=== PATIENT | female | born 1950 | race Caucasian/White ===

== ENCOUNTER 2016-03-26 14:03 | Emergency (ER) | payer OTHER ==
[2016-03-26 14:51] VITALS: BMI 34.0
[2016-03-26] MEDS ORDERED: ACETAMINOPHEN 650 MG/20.3 ML ORAL SOLUTION (CUPS) PO ONE (14:51)
[2016-03-26] MEDS ORDERED: SODIUM CHLORIDE 1,000 ML IV STA (16:39)
--- NOTE | 2016-03-26 16:47 | PDOC ---
History of Present Illness - General History Source: Patient - History of Present Illness Timing/Duration: reports: week Associated Symptoms: reports: cough, fever/chills, muscle aches, nasal congestion, nasal drainage, shortness of breath. denies: chest pain/soreness, dizziness, earache, headache, sore throat, wheezing <April EdenTheresa - Last Filed: 03/27/16 09:31> <Karine Choudhury - Last Filed: 03/27/16 19:21> - General Chief Complaint: Respiratory Stated Complaint: CONGESTED, VOMITING, HEADACHE Time Seen by Provider: 03/26/16 16:06 Past History - Past Medical History Asthma: Yes Diabetes: Yes Dialysis: No HTN: Yes Hypercholesterolemia: Yes - Immunization History Immunization Up to Date: Yes - Psycho/Social/Smoking Cessation Hx Anxiety: No Suicidal Ideation: No Smoking History: Never smoked Have you smoked in the past 12 months: No Information on smoking cessation initiated: No Hx Alcohol Use: No Drug/Substance Use Hx: No Substance Use Type: None <April EdenTheresa - Last Filed: 03/27/16 09:31> <Karine Choudhury - Last Filed: 03/27/16 19:21> - Past Medical History Allergies/Adverse Reactions: Allergies Allergy/AdvReac Type Severity Reaction Status Date / Time No Known Allergies Allergy Verified 03/26/16 14:47 Home Medications: Ambulatory Orders Aspirin [ASA -] 81 mg PO DAILY 11/20/15 Atorvastatin Ca [Lipitor] 100 mg PO HS 11/20/15 Benzonatate 200 mg PO TID 11/20/15 Calcium Carb/Vitamin D3/Vit K1 [Calcium + D Soft Chewable Tab] 1 each PO BID Gabapentin 300 mg PO TID 11/20/15 Ibuprofen 600 mg PO TID PRN 11/20/15 Lisinopril [Zestril] 2.5 mg PO DAILY 11/20/15 Metformin HCl [Metformin HCl ER] 500 mg PO HS 11/20/15 Sennosides [Senna] 8.6 mg PO DAILY PRN 11/20/15 Albuterol Sulfate Inhaler - [Ventolin HFA Inhaler -] 2 inh PO Q4H #1 inh Promethazine HCl/Codeine [Prometh-Codein 6.25-10 mg/5 ml] 5 ml PO BID #60 syrup MDD 10 11/23/15 Azithromycin [Zithromax -] 250 mg PO UTDICT #6 tab 03/26/16 Azithromycin [Zithromax -] 250 mg PO UTDICT #6 tab 03/26/16 Review of Systems - Review of Systems Constitutional: Yes: Chills, Fever, Malaise HEENTM: Yes: Nose Congestion Respiratory: Yes: Cough, Shortness of Breath. No: Wheezing Cardiac (ROS): No: Chest Pain ABD/GI: No: Diarrhea, Nausea Neurological: No: Headache, Dizziness <[place] - Last Filed: 03/27/16 09:31> *Physical Exam - Vital Signs Last Vital Signs Temp Pulse Resp BP Pulse Ox 103.0 F H 109 H 18 136/71 94 L 03/26/16 14:48 03/26/16 14:48 03/26/16 14:48 03/26/16 14:48 03/26/16 14:48 - Physical Exam General Appearance: Yes: Appropriately Dressed. No: Apparent Distress HEENT: positive: Normal ENT Inspection, Normal Voice. negative: Scleral Icterus (R), Scleral Icterus (L), Muffled/Hoarse voice Neck: positive: Supple. negative: Lymphadenopathy (R), Lymphadenopathy (L) Respiratory/Chest: positive: Decreased Breath Sounds (on the R). negative: Respiratory Distress Cardiovascular: positive: S1, S2, Tachycardia Gastrointestinal/Abdominal: positive: Soft. negative: Tender Integumentary: positive: Dry, Warm Neurologic: positive: Fully Oriented, Alert, Normal Mood/Affect <[place] - Last Filed: 03/27/16 09:31> - Vital Signs Last Vital Signs Temp Pulse Resp BP Pulse Ox 102.9 F H 107 H 21 157/78 96 03/26/16 21:11 03/26/16 21:11 03/26/16 21:11 03/26/16 21:11 03/26/16 21:11 <Karine Choudhury - Last Filed: 03/27/16 19:21> ED Treatment Course - LABORATORY CBC & Chemistry Diagram: 03/26/16 18:10 03/26/16 18:10 - RADIOLOGY Radiology Studies Ordered: Category Date Time Status CHEST PA & LAT [RAD] Stat Radiology 03/26/16 16:38 Ordered - Medications Given in the ED: ED Medications Discontinued Medications Generic Name Dose Route Start Last Admin Trade Name Freger PRN Reason Stop Dose Admin Acetaminophen 975 mg 03/26/16 14:51 03/26/16 14:51 Tylenol Oral Solution - PO 03/26/16 14:52 975 mg NOW ONE Administration <[place] - Last Filed: 03/27/16 09:31> - LABORATORY CBC & Chemistry Diagram: 03/26/16 18:10 03/26/16 18:10 - ADDITIONAL ORDERS Additional order review: 03/26/16 18:50 Blood Culture - Preliminary Blood - Peripheral Venous NO GROWTH OBTAINED AFTER 24 HOURS, INCUBATION TO CONTINUE FOR 4 DAYS. 03/26/16 18:00 Blood Culture - Preliminary Blood - Peripheral Venous NO GROWTH OBTAINED AFTER 24 HOURS, INCUBATION TO CONTINUE FOR 4 DAYS. 03/26/16 18:10 Influenza Types A,B Antigen (KATIE) - Final Nasopharyngeal Swab - Final 03/26/16 18:10 RBC 4.56 MCV 85.1 MCHC 32.9 RDW 14.8 MPV 10.0 Neutrophils % 87.3 H D Lymphocytes % 9.2 D Monocytes % 3.0 L Eosinophils % 0.0 D Basophils % 0.5 - Medications Given in the ED: ED Medications Discontinued Medications Generic Name Dose Route Start Last Admin Trade Name Freger PRN Reason Stop Dose Admin Acetaminophen 975 mg 03/26/16 14:51 03/26/16 14:51 Tylenol Oral Solution - PO 03/26/16 14:52 975 mg NOW ONE Administration Sodium Chloride 1,000 mls @ 1,000 mls/hr 03/26/16 16:39 03/26/16 18:25 Normal Saline - IV 03/26/16 17:38 1,000 mls/hr ASDIR STA Administration Ceftriaxone Sodium 1 gm/ 50 mls @ 100 mls/hr 03/26/16 17:26 03/26/16 18:36 Dextrose IVPB 03/26/16 17:55 100 mls/hr ONCE ONE Administration Ibuprofen 800 mg 03/26/16 21:10 03/26/16 21:14 Motrin - PO 03/26/16 21:11 800 mg ONCE ONE Administration <Karine Choudhury - Last Filed: 03/27/16 19:21> Medical Decision Making - Medical Decision Making 03/26/16 16:45 65 yo F, h/o DM, asthma, recurrent "bronchitis", p/w malaise with body aches, nasal congestion, productive cough, shortness of breath and fever 1 week. Denies wheezing. States when she has these symptoms, she usually gets a z-Pack for her bronchitis, but for unclear reasons was unable to see her PMD so presented to the ER. No history of pneumonia as per patient and nonsmoker. See exam Viral syndrome Tachy, hypoxic and febrile in ED w/ ?decreased BS on the R R/o PNA, possible influenza -NC -tylenol -CXR -abx -labs including inflenza -admit 03/27/16 09:31 <[place] - Last Filed: 03/27/16 09:31> *DC/Admit/Observation/Transfer <[place] - Last Filed: 03/27/16 09:31> - Attestations Physician Attestion: I reviewed the case with the mid-level practitioner and agree with the mid- level practitioner's assessment, diagnosis and disposition. <Karine Choudhury - Last Filed: 03/27/16 19:21> Diagnosis at time of Disposition: Influenza A - Discharge Dispostion Disposition: HOME Condition at time of disposition: Improved - Prescriptions Prescriptions: Azithromycin [Zithromax -] 250 mg PO UTDICT #6 tab Azithromycin [Zithromax -] 250 mg PO UTDICT #6 tab - Referrals Referrals: Reid Craven MD [Staff Physician] - - Patient Instructions Printed Discharge Instructions: Influenza Additional Instructions: Follow up with your physician Take tylenol/Motrin as needed for pain/fever Increase fluid intake Return to the Er for severe/persistent/worsening symptoms
[2016-03-26] MEDS ORDERED: AZITHROMYCIN IVPB 500 MG in DEXTROSE 5%-WATER - 250 ML IVPB ONE (17:25)
[2016-03-26] MEDS ORDERED: CEFTRIAXONE 1 GM in DEXTROSE 5%-WATER - 50 ML IVPB ONE (17:26)
[2016-03-26 18:22] LABS: BASOPHIL 0.5 % (0-2.0); MCHC 32.9 g/dl (32.0-36.0); MEAN CELL VOLUME 85.1 fl (80-96); NEUTROPHILS 87.3 % (42.8-82.8); PLATELET COUNT 236 K/MM3 (134-434); RDW 14.8 % (11.6-15.6)
[2016-03-26] MEDS ORDERED: ACETAMINOPHEN 325 MG TABLET (FP) ONE (18:24)
[2016-03-26] MEDS ORDERED: CEFTRIAXONE 50 ML ONE (18:31)
[2016-03-26 18:48] LABS: ALBUMIN 3.3 g/dl (3.4-5.0); ANION GAP 14 (8-16); CALCIUM 8.1 mg/dL (8.5-10.1); CO2 25 mmol/L (21-32); CREATININE 0.9 mg/dL (0.55-1.02); GLUCOSE,RANDOM 130 mg/dL (74-106); SGPT/ALT 33 U/L (12-78)
[2016-03-26 18:50] LABS: ALK PHOS 120 U/L (45-117); BILIRUBIN,TOTAL 0.5 mg/dL (0.2-1.0); TOT PROT 7.3 g/dl (6.4-8.2)
[2016-03-26 18:56] LABS: SGOT/AST 33 U/L (15-37)
--- NOTE | 2016-03-26 20:29 | PDOC ---
*Physical Exam - Vital Signs Last Vital Signs Temp Pulse Resp BP Pulse Ox 103.0 F H 109 H 18 136/71 94 L 03/26/16 14:48 03/26/16 14:48 03/26/16 14:48 03/26/16 14:48 03/26/16 14:48 ED Treatment Course - LABORATORY CBC & Chemistry Diagram: 03/26/16 18:10 03/26/16 18:10 - ADDITIONAL ORDERS Additional order review: Laboratory Results 03/26/16 03/26/16 18:55 18:10 Sodium 141 Potassium 4.2 Chloride 102 Carbon Dioxide 25 Anion Gap 14 BUN 13 Creatinine 0.9 Creat Clearance w eGFR > 60 Random Glucose 130 H D Lactic Acid 1.717 Calcium 8.1 L Total Bilirubin 0.5 D AST 33 ALT 33 Alkaline Phosphatase 120 H Total Protein 7.3 Albumin 3.3 L 03/26/16 18:10 Influenza Types A,B Antigen (KATIE) - Final Nasopharyngeal Swab - Final 03/26/16 18:10 RBC 4.56 MCV 85.1 MCHC 32.9 RDW 14.8 MPV 10.0 Neutrophils % 87.3 H D Lymphocytes % 9.2 D Monocytes % 3.0 L Eosinophils % 0.0 D Basophils % 0.5 - RADIOLOGY Radiograph Interpretation: 03/26/16 21:06 CXR 2v no infiltrates NAD - Medications Given in the ED: ED Medications Discontinued Medications Generic Name Dose Route Start Last Admin Trade Name Freq PRN Reason Stop Dose Admin Acetaminophen 975 mg 03/26/16 14:51 03/26/16 14:51 Tylenol Oral Solution - PO 03/26/16 14:52 975 mg NOW ONE Administration Sodium Chloride 1,000 mls @ 1,000 mls/hr 03/26/16 16:39 03/26/16 18:25 Normal Saline - IV 03/26/16 17:38 1,000 mls/hr ASDIR STA Administration Ceftriaxone Sodium 1 gm/ 50 mls @ 100 mls/hr 03/26/16 17:26 03/26/16 18:36 Dextrose IVPB 03/26/16 17:55 100 mls/hr ONCE ONE Administration *DC/Admit/Observation/Transfer Diagnosis at time of Disposition: Influenza A - Discharge Dispostion Disposition: HOME Condition at time of disposition: Improved Admit: No - Prescriptions Prescriptions: Azithromycin [Zithromax -] 250 mg PO UTDICT #6 tab Azithromycin [Zithromax -] 250 mg PO UTDICT #6 tab - Referrals Referrals: Reid Craven MD [Staff Physician] - - Patient Instructions Printed Discharge Instructions: Influenza Additional Instructions: Follow up with your physician Take tylenol/Motrin as needed for pain/fever Increase fluid intake Return to the Er for severe/persistent/worsening symptoms
[2016-03-26] MEDS ORDERED: IBUPROFEN 400 MG TABLET (FP) PO ONE ×2 (21:10→21:12)
[2016-03-26 21:12] VITALS: BP 157/78; PULSE 107; TEMP 102.9
--- NOTE | 2016-03-28 23:45 | EKG ---
Test Reason : Blood Pressure : / mmHG Vent. Rate : 089 BPM Atrial Rate : 089 BPM P-R Int : 138 ms QRS Dur : 080 ms QT Int : 380 ms P-R-T Axes : 039 060 064 degrees QTc Int : 462 ms NORMAL SINUS RHYTHM NORMAL ECG WHEN COMPARED WITH ECG OF 25-OCT-2015 21:48, NO SIGNIFICANT CHANGE WAS FOUND Confirmed by ABHILASH ELIZABETH MD ([id number]) on 03/28/2016 11:45:23 PM Referred By: Confirmed By:ABHILASH ELIZABETH MD
== END 2016-03-26 22:32 | disposition home or self-care (01) ==
LOC: JER 14:03
PROC: 3E0337Z Introduction of Electrolytic and Water Balance Substance into Peripheral Vein, Percutaneous Approach (ICD-10-PCS; principal; 2016-03-26)
PROC: 3E03329 Introduction of Other Anti-infective into Peripheral Vein, Percutaneous Approach (ICD-10-PCS; 2016-03-26)
DX: J09.X2 Influenza due to identified novel influenza A virus with other respiratory manifestations (principal)
CPT/HCPCS: 36415; 71020-TC; 80053; 83605; 85025; 87040; 87804; 93005; 93010; 96361; 96365; 99281-25

== ENCOUNTER 2018-03-27 16:14 | Emergency (ER) | payer OTHER ==
[2018-03-27 16:23] VITALS: BP 122/58; PULSE 97; TEMP 98.9; BMI 25.8
--- NOTE | 2018-03-27 16:24 | PDOC ---
Rapid Medical Evaluation Time Seen by Provider: 03/27/18 16:20 Medical Evaluation: Allergies Allergy/AdvReac Type Severity Reaction Status Date / Time No Known Allergies Allergy Verified 03/26/16 14:47 03/27/18 16:20 Pt presents to the ED with two weeks of cough and cold like symptoms. Was on amoxicillin with little relief of symptoms Exam: cough with deep breaths. Lungs CTAB Orders: Nothing Pt to proceed to ED for further evaluation Discharge Disposition - Diagnosis Cough - Referrals Referrals: Mingo Aj [Primary Care Provider] - - Patient Instructions - Post Discharge Activity
[2018-03-27] MEDS ORDERED: DEXAMETHASONE LIQUID 0.5 MG/5 ML 240 ML BULK BOTTLE PO ONE (16:52)
[2018-03-27] MEDS ORDERED: DEXAMETHASONE SOD PHOSPHATE 10 MG/1 ML VIAL ONE (16:57)
[2018-03-27] MEDS ORDERED: ALBUTEROL SO4 2.5/IPRATROPIUM 0.5 INH SOL 3 ML VIAL.NEB. NEB ONE (16:57)
--- NOTE | 2018-03-27 17:03 | PDOC ---
History of Present Illness - General Chief Complaint: Cold Symptoms Stated Complaint: Cold Symptoms Time Seen by Provider: 03/27/18 16:20 - History of Present Illness Initial Comments: 03/27/18 16:58 67-year-old female with history of diabetes hypertension as well as dyslipidemia presents for evaluation of cough with intermittent fevers 2 weeks Past History - Past Medical History Allergies/Adverse Reactions: Allergies Allergy/AdvReac Type Severity Reaction Status Date / Time No Known Allergies Allergy Verified 03/26/16 14:47 Home Medications: Ambulatory Orders Aspirin [ASA -] 81 mg PO DAILY 11/20/15 Atorvastatin Ca [Lipitor] 100 mg PO HS 11/20/15 Calcium Carb/Vitamin D3/Vit K1 [Calcium + D Soft Chewable Tab] 1 each PO BID Gabapentin 300 mg PO TID 11/20/15 Lisinopril [Zestril] 2.5 mg PO DAILY 11/20/15 Metformin HCl [Metformin HCl ER] 500 mg PO HS 11/20/15 Albuterol Sulfate Inhaler - [Ventolin HFA Inhaler -] 2 inh PO Q4H #1 inh Azithromycin [Zithromax -] 250 mg PO UTDICT #6 tab 03/27/18 Asthma: Yes Diabetes: Yes Dialysis: No HTN: Yes Hypercholesterolemia: Yes - Immunization History Immunization Up to Date: Yes - Suicide/Smoking/Psychosocial Hx Smoking History: Never smoked Have you smoked in the past 12 months: No Hx Alcohol Use: No Drug/Substance Use Hx: No Substance Use Type: None Review of Systems - Review of Systems Constitutional: Yes: Fever Respiratory: Yes: Cough *Physical Exam - Vital Signs Last Vital Signs Temp Pulse Resp BP Pulse Ox 98.9 F 97 H 20 122/58 L 97 03/27/18 16:19 03/27/18 16:19 03/27/18 16:19 03/27/18 16:19 03/27/18 16:19 - Physical Exam Comments: 03/27/18 17:00 HEAD: NC/AT EYES: Conjuntiva clear Ears: Canals and TM's normal NOSE: No d/c THROAT: Moist mucous membrances, oral pharanx clear, uvula midline NECK: Supple without adenopathy CARDIAC: S1 S2 LUNGS: Mild wheezing at the right base ABDOMEN: Soft NT ND MS: Full ROM in all joints without edema NEUROLOGIC: No gross sensory or motor deficits, NVID SKIN: Normal color and temperature no lesions or rashes Moderate Sedation - Procedure Monitoring Vital Signs: Procedure Monitoring Vital Signs Temperature 98.9 F 03/27/18 16:19 Pulse Rate 97 H 03/27/18 16:19 Respiratory Rate 20 03/27/18 16:19 Blood Pressure 122/58 L 03/27/18 16:19 O2 Sat by Pulse Oximetry (%) 97 03/27/18 16:19 Medical Decision Making - Medical Decision Making 03/27/18 18:00 clear after 3 duo nebs and decadron *DC/Admit/Observation/Transfer Diagnosis at time of Disposition: Cough, Bronchitis - Discharge Dispostion Disposition: HOME Condition at time of disposition: Stable Decision to Admit order: No - Referrals Referrals: Mingo Aj [Primary Care Provider] - Mingo Virgen MD, MD [Staff Physician] - - Patient Instructions Printed Discharge Instructions: DI for Acute Bronchitis Additional Instructions: Please continue usual pump as directed and take the antibiotics as directed. Tylenol and Motrin as needed for fever please take that as directed return to the emergency room should symptoms worsen or go unresolved and follow-up with pulmonology in 2-3 days for further evaluation and treatment options. - Post Discharge Activity
[2018-03-27] MEDS: ALBUTEROL SO4 2.5/IPRATROPIUM 0.5 INH SOL 3 ML VIAL.NEB. NEB SCH ×4 (17:04→18:04)
== END 2018-03-27 18:08 | disposition home or self-care (01) ==
LOC: JERFT 16:14
DX: J20.9 Acute bronchitis, unspecified (principal); I10 Essential (primary) hypertension; E78.00 Pure hypercholesterolemia, unspecified; E11.9 Type 2 diabetes mellitus without complications; Z79.84 Long term (current) use of oral hypoglycemic drugs
CPT/HCPCS: 71046-TC-FY; 99281-25

== ENCOUNTER 2018-05-12 00:45 | Emergency (ER) | payer OTHER ==
[2018-05-12 01:46] VITALS: BMI 33.4
--- NOTE | 2018-05-12 01:58 | PDOC ---
History of Present Illness - General Chief Complaint: Nausea/Vomiting Stated Complaint: FEVER/VOMITING Time Seen by Provider: 05/12/18 01:58 History Source: Patient Exam Limitations: No Limitations - History of Present Illness Initial Comments: 05/12/18 02:23 67 year old female with PMH HTN, HLD, DM, cholecystectomy presented to ED for nausea/vomiting starting 1900 today. Pt stated she ate pizza prior to her symptoms developing. Pt stated her family ate the same pizza and did not have any reaction. She admitted to diffuse abdominal pain. She denied fever, chills, diarrhea, hematemesis, blood in stool, chest pain, shortness of breath. Allergies: NKDA Past History - Past Medical History Allergies/Adverse Reactions: Allergies Allergy/AdvReac Type Severity Reaction Status Date / Time No Known Allergies Allergy Verified 05/12/18 01:44 Home Medications: Ambulatory Orders Aspirin [ASA -] 81 mg PO DAILY 11/20/15 Atorvastatin Ca [Lipitor] 100 mg PO HS 11/20/15 Calcium Carb/Vitamin D3/Vit K1 [Calcium + D Soft Chewable Tab] 1 each PO BID Gabapentin 300 mg PO TID 11/20/15 Lisinopril [Zestril] 2.5 mg PO DAILY 11/20/15 Metformin HCl [Metformin HCl ER] 500 mg PO HS 11/20/15 Albuterol Sulfate Inhaler - [Ventolin HFA Inhaler -] 2 inh PO Q4H #1 inh Albuterol Sulfate Inhaler - [Ventolin HFA Inhaler -] 1 - 2 inh PO Q4H #1 inhaler 03/27/18 Azithromycin [Zithromax -] 250 mg PO UTDICT #6 tab 03/27/18 Ondansetron [Zofran Odt -] 4 mg SL TID #3 od.tablet 05/12/18 Ondansetron [Zofran Odt -] 4 mg SL TID #9 od.tablet 05/12/18 Asthma: Yes Diabetes: Yes Dialysis: No HTN: Yes Hypercholesterolemia: Yes - Immunization History Immunization Up to Date: Yes - Suicide/Smoking/Psychosocial Hx Smoking History: Never smoked Have you smoked in the past 12 months: No Information on smoking cessation initiated: No Hx Alcohol Use: No Drug/Substance Use Hx: No Substance Use Type: None Review of Systems - Review of Systems Able to Perform ROS?: Yes Comments:: 05/12/18 02:24 General: denied fever, chills, generalized weakness. HEENT: denied sore throat, rhinorrhea, ear pain. Heart: denied chest pain, palpitations, syncope, diaphoresis. Respiratory: denied shortness of breath, cough, sputum production, hemoptysis. Abdomen: abdominal pain, nausea, vomiting. denied diarrhea, constipation, blood in stool. : denied dysuria, increased urinary frequency, hematuria, urinary incontinence , flank pain. Back: denied back pain. Musculoskeletal: denied joint pain, muscle pain, joint swelling. Neurological: denied headache, dizziness, numbness, tingling, weakness. Skin: denied rash, laceration, abrasion. *Physical Exam - Vital Signs Last Vital Signs Temp Pulse Resp BP Pulse Ox 98.2 F 83 16 112/60 98 05/12/18 01:44 05/12/18 01:44 05/12/18 01:44 05/12/18 01:44 05/12/18 01:44 - Physical Exam Comments: 05/12/18 02:25 Constitutional: Well-nourished, Well-developed, appearing stated age. HEENT: head is normocephalic, atraumatic. EOMI. PERRLA. Neck: supple. Full ROM. Heart: regular rhythm. no murmurs, rubs or gallops. Lungs: clear to auscultation bilaterally. no crackles, rhonchi or wheezing. no stridor. Abdomen: soft, tenderness to palpation of epigastrium and periumbilical area. murphys negative. mcburneys point nontender. normal bowel sounds. no rebound, guarding, masses. Extremities: peripheral pulses intact. no lower extremity edema. Neurological: CN 2-12 grossly intact. moves all four extremities. Psych: awake, alert, oriented x3. follows commands. answers questions appropriately. Moderate Sedation - Procedure Monitoring Vital Signs: Procedure Monitoring Vital Signs Temperature 98.2 F 05/12/18 01:44 Pulse Rate 83 05/12/18 01:44 Respiratory Rate 16 05/12/18 01:44 Blood Pressure 112/60 05/12/18 01:44 O2 Sat by Pulse Oximetry (%) 98 05/12/18 01:44 ED Treatment Course - LABORATORY CBC & Chemistry Diagram: 05/12/18 03:03 05/12/18 03:03 Medical Decision Making - Medical Decision Making 05/12/18 02:26 67 year old female with above PMH presented to ED for nausea, vomiting, diffuse abdominal pain since 1900 today. Initial Vital Signs Temp Pulse Resp BP Pulse Ox 98.2 F 83 16 112/60 98 05/12/18 01:44 05/12/18 01:44 05/12/18 01:44 05/12/18 01:44 05/12/18 01:44 Afebrile. No tachycardia. No tachypnea. No hypotension. No hypoxia on room air. Labs ordered: CBC, CMP, lipase, troponin, influenza A/B Imaging ordered: none Medications ordered: normal saline bolus 1000 cc, zofran, pepcid, maalox EKG performed at 0254: rate 76, regular rhythm, normal axis, normal intervals, nonspecific ST changes. 05/12/18 03:41 1st normal saline bolus finished. Medications ordered: normal saline 1000 cc bolus 05/12/18 03:50 CBC WBC 8.8 K/mm3 (4.0-10.0) 05/12/18 03:03 RBC 3.98 M/mm3 (3.60-5.2) 05/12/18 03:03 Hgb 12.1 GM/dL (10.7-15.3) 05/12/18 03:03 Hct 35.6 % (32.4-45.2) 05/12/18 03:03 MCV 89.5 fl (80-96) 05/12/18 03:03 MCH 30.3 pg (25.7-33.7) 05/12/18 03:03 MCHC 33.9 g/dl (32.0-36.0) 05/12/18 03:03 RDW 14.4 % (11.6-15.6) 05/12/18 03:03 Plt Count 266 K/MM3 (134-434) 05/12/18 03:03 MPV 10.7 fl (7.5-11.1) 05/12/18 03:03 Absolute Neuts (auto) 7.6 K/mm3 (1.5-8.0) 05/12/18 03:03 Neutrophils % 86.2 % (42.8-82.8) H 05/12/18 03:03 Lymphocytes % 8.8 % (8-40) 05/12/18 03:03 Monocytes % 3.4 % (3.8-10.2) L 05/12/18 03:03 Eosinophils % 1.2 % (0-4.5) D 05/12/18 03:03 Basophils % 0.4 % (0-2.0) 05/12/18 03:03 Nucleated RBC % 0 % (0-0) 05/12/18 03:03 No leukocytosis. No anemia. 05/12/18 03:59 Influenza testing negative. 05/12/18 04:22 Pt reassessed, reported nausea improved, but pain still present. Examination: tenderness to to epigastrium. Imaging ordered: CT abdomen/pelvis 05/12/18 05:23 CMP Sodium 142 mmol/L (136-145) 05/12/18 03:03 Potassium 3.7 mmol/L (3.5-5.1) 05/12/18 03:03 Chloride 108 mmol/L (98-107) H 05/12/18 03:03 Carbon Dioxide 26 mmol/L (21-32) 05/12/18 03:03 Anion Gap 9 MMOL/L (8-16) 05/12/18 03:03 BUN 19 mg/dL (7-18) H 05/12/18 03:03 Creatinine 0.7 mg/dL (0.55-1.3) 05/12/18 03:03 Creat Clearance w eGFR > 60 (>60) 05/12/18 03:03 Random Glucose 98 mg/dL (74-106) 05/12/18 03:03 Calcium 8.1 mg/dL (8.5-10.1) L 05/12/18 03:03 Total Bilirubin 0.6 mg/dL (0.2-1) 05/12/18 03:03 AST 19 U/L (15-37) 05/12/18 03:03 ALT 16 U/L (13-61) 05/12/18 03:03 Alkaline Phosphatase 86 U/L (45-117) 05/12/18 03:03 Troponin I 0.02 ng/ml (0.00-0.05) 05/12/18 03:03 Total Protein 6.4 g/dl (6.4-8.2) 05/12/18 03:03 Albumin 3.3 g/dl (3.4-5.0) L 05/12/18 03:03 Lipase 73 U/L (73-393) 05/12/18 03:03 No electrolyte abnormalities. No NIKOLAY. Normal troponin. Normal lipase. 05/12/18 05:26 CT abdomen/pelvis report: small stone left kidney. no obstructive uropathy. no bladder calculi. unremarkable stomach, spleen, liver, pancreas. cholecystectomy. no bowel obstruction, colitis, diverticulitis, free fluid or free air. normal appendix. chronically superiorly dislocated femoral heads. Pt reassessed, resting comfortably. Reported pain improved and she would like to go home. Pt discharged. Discharge medications: zofran *DC/Admit/Observation/Transfer Diagnosis at time of Disposition: Abdominal pain, Nausea & vomiting - Discharge Dispostion Disposition: HOME Condition at time of disposition: Improved Decision to Admit order: No - Prescriptions Prescriptions: Ondansetron [Zofran Odt -] 4 mg SL TID #9 od.tablet Ondansetron [Zofran Odt -] 4 mg SL TID #3 od.tablet - Referrals Referrals: Mingo Aj [Primary Care Provider] - - Patient Instructions Printed Discharge Instructions: DI for Abdominal Pain-Adult, DI for Nausea -- Adult, DI for Vomiting -- Adult Additional Instructions: You were seen today for abdominal pain. Your lab work was normal. Your CatScan of your abdomen showed a left sided kidney stone that is small. I have sent a prescription to your pharmacy for Zofran, an anti-nausea medication. Take as indicated on label. Avoid greasy/fatty foods. Follow up with your primary care doctor in 1-2 days. Return to the Emergency Department for chest pain, shortness of breath, increasing pain despite Tylenol use, vomiting despite Zofran use, fever or any other new, worsening or concerning symptoms. Print Language: ERITREAN - Post Discharge Activity Forms/Work/School Notes: Back to Work
[2018-05-12] MEDS ORDERED: FAMOTIDINE 20 MG/50 ML IVPB 20 MG/50 ML MG IVPB ONE ×2 (02:06→02:25)
[2018-05-12] MEDS ORDERED: SODIUM CHLORIDE 1,000 ML IV STA ×2 (02:06→03:41)
[2018-05-12] MEDS ORDERED: ONDANSETRON 4 MG/2 ML VIAL IVPUSH ONE (02:06)
[2018-05-12] MEDS ORDERED: MAG HYDROX/AL HYDROX/SIMETH 30 ML UNIT-DOSE CUP PO ONE (02:06)
[2018-05-12] MEDS ORDERED: ONDANSETRON 4 MG/2 ML VIAL ONE (02:24)
[2018-05-12] MEDS ORDERED: MAG HYDROX/AL HYDROX/SIMETH 30 ML UNIT-DOSE CUP ONE (02:24)
--- NOTE | 2018-05-12 03:05 | PDOC ---
Attending Attestation - Resident Resident Name: Carmen Johnson - ED Attending Attestation I have performed the following: I have examined & evaluated the patient, The case was reviewed & discussed with the resident, I agree w/resident's findings & plan, Exceptions are as noted - HPI HPI: 05/12/18 06:31 67F here with acute onset of abd px, n/v after eating pizza. No trauma, ROS otherwise neg - Physicial Exam PE: 05/12/18 06:32 Agree with exam as documented by resident +TTP over epigastric region, no guarding, no rebound - Medical Decision Making 05/12/18 06:32 Likely AGE 2/2 food, consider acute intra-abd pathology, atypical presentation of acs f/u labs, analgesia, re-eval Px and tenderness persisting after tx f/u CT AP Symptoms resolved, ct neg for acute path safe for dc home
[2018-05-12 03:36] LABS: HEMATOCRIT 35.6 % (32.4-45.2); HEMOGLOBIN 12.1 GM/dL (10.7-15.3); MCH 30.3 pg (25.7-33.7); MCHC 33.9 g/dl (32.0-36.0); MEAN CELL VOLUME 89.5 fl (80-96); RBC 3.98 M/mm3 (3.60-5.2); WHITE BLOOD COUNT 8.8 K/mm3 (4.0-10.0)
[2018-05-12 03:37] LABS: BASO % 0.4 % (0-2.0); EOS % 1.2 % (0-4.5); LYMPH % 8.8 % (8-40); MEAN PLT VOLUME 10.7 fl (7.5-11.1); MONO % 3.4 % (3.8-10.2); NEUT % 86.2 % (42.8-82.8); PLATELET COUNT 266 K/MM3 (134-434); RDW 14.4 % (11.6-15.6)
[2018-05-12 05:00] LABS: ALBUMIN 3.3 g/dl (3.4-5.0); ALK PHOS 86 U/L (45-117); ANION GAP 9 MMOL/L (8-16); BILIRUBIN,TOTAL 0.6 mg/dL (0.2-1); BLOOD UREA NITROGEN 19 mg/dL (7-18); CALCIUM 8.1 mg/dL (8.5-10.1); CHLORIDE 108 mmol/L (98-107); CO2 26 mmol/L (21-32); CREATININE 0.7 mg/dL (0.55-1.3); GLUCOSE,RANDOM 98 mg/dL (74-106); LIPASE 73 U/L (73-393); POTASSIUM 3.7 mmol/L (3.5-5.1); SGOT/AST 19 U/L (15-37); SGPT/ALT 16 U/L (13-61); SODIUM 142 mmol/L (136-145); TOT PROT 6.4 g/dl (6.4-8.2)
[2018-05-12 05:54] VITALS: BP 122/76; PULSE 76; TEMP 98
--- NOTE | 2018-05-12 14:17 | EKG ---
Test Reason : Blood Pressure : / mmHG Vent. Rate : 076 BPM Atrial Rate : 076 BPM P-R Int : 160 ms QRS Dur : 088 ms QT Int : 414 ms P-R-T Axes : 034 038 031 degrees QTc Int : 465 ms NORMAL SINUS RHYTHM NORMAL ECG WHEN COMPARED WITH ECG OF 26-MAR-2016 19:55, NO SIGNIFICANT CHANGE WAS FOUND Confirmed by JONO GASPAR MD ([id number]) on 05/12/2018 2:17:16 PM Referred By: Confirmed By:JONO GASPAR MD
== END 2018-05-12 05:53 | disposition home or self-care (01) ==
LOC: JER 00:45
PROC: 3E0337Z Introduction of Electrolytic and Water Balance Substance into Peripheral Vein, Percutaneous Approach (ICD-10-PCS; principal; 2018-05-12)
PROC: 3E033GC Introduction of Other Therapeutic Substance into Peripheral Vein, Percutaneous Approach (ICD-10-PCS; 2018-05-12)
PROC: 3E033GC Introduction of Other Therapeutic Substance into Peripheral Vein, Percutaneous Approach (ICD-10-PCS; 2018-05-12)
DX: R10.13 Epigastric pain (principal); R11.2 Nausea with vomiting, unspecified; I10 Essential (primary) hypertension; E78.00 Pure hypercholesterolemia, unspecified; E11.9 Type 2 diabetes mellitus without complications; Z79.84 Long term (current) use of oral hypoglycemic drugs; J45.909 Unspecified asthma, uncomplicated; Z79.82 Long term (current) use of aspirin; Z90.49 Acquired absence of other specified parts of digestive tract
CPT/HCPCS: 36415; 74176-TC; 80053; 83690; 84484; 85025; 87804; 93005; 93010; 96361; 96365; 96375; 99282-25; J7030

== ENCOUNTER 2018-06-21 11:11 | Emergency (ER) | payer OTHER ==
[2018-06-21 11:23] VITALS: BP 134/72; PULSE 98; TEMP 99.9; BMI 26.5
[2018-06-21] MEDS ORDERED: ALBUTEROL SO4 2.5/IPRATROPIUM 0.5 INH SOL 3 ML VIAL.NEB. NEB ONE ×2 (12:10→12:16)
[2018-06-21] MEDS ORDERED: IBUPROFEN 600 MG TABLET (FP) PO ONE ×2 (12:10→12:16)
--- NOTE | 2018-06-21 12:11 | PDOC ---
History of Present Illness - General Chief Complaint: Respiratory Stated Complaint: FEVER Time Seen by Provider: 06/21/18 11:47 Past History - Travel Traveled outside of the country in the last 30 days: No Close contact w/someone who was outside of country & ill: No - Past Medical History Allergies/Adverse Reactions: Allergies Allergy/AdvReac Type Severity Reaction Status Date / Time No Known Allergies Allergy Verified 06/21/18 11:23 Home Medications: Ambulatory Orders Aspirin [ASA -] 81 mg PO DAILY 11/20/15 Atorvastatin Ca [Lipitor] 100 mg PO HS 11/20/15 Calcium Carb/Vitamin D3/Vit K1 [Calcium + D Soft Chewable Tab] 1 each PO BID Gabapentin 300 mg PO TID 11/20/15 Lisinopril [Zestril] 2.5 mg PO DAILY 11/20/15 Metformin HCl [Metformin HCl ER] 500 mg PO HS 11/20/15 Ibuprofen 600 mg PO Q6H #30 tablet 06/21/18 Asthma: Yes COPD: No Diabetes: Yes Dialysis: No HTN: Yes Hypercholesterolemia: Yes - Immunization History Td Vaccination: Yes TDAP Vaccination: Yes Immunization Up to Date: Yes - Suicide/Smoking/Psychosocial Hx Smoking History: Never smoked Have you smoked in the past 12 months: No Information on smoking cessation initiated: No Hx Alcohol Use: No Drug/Substance Use Hx: No Substance Use Type: None Review of Systems - Review of Systems Able to Perform ROS?: Yes Comments:: 06/21/18 13:17 CONSTITUTIONAL: Present: fever Absent: chills, diaphoresis, generalized weakness, malaise, loss of appetite HEENT: Present: sore throat, nasal congestion Absent: rhinorrhea, throat swelling, difficulty swallowing, mouth swelling, ear pain, eye pain, visual Changes CARDIOVASCULAR: Absent: chest pain, loss of consciousness, palpitations, irregular heart rate, peripheral edema RESPIRATORY: Present: cough Absent: shortness of breath, dyspnea with exertion, orthopnea, wheezing, stridor, hemoptysis GASTROINTESTINAL: Absent: abdominal pain, abdominal distension, nausea, vomiting, diarrhea, constipation, melena, hematochezia GENITOURINARY: Absent: dysuria, frequency, urgency, hesitancy, hematuria, flank pain, genital pain MUSCULOSKELETAL: Absent: myalgia, arthralgia, joint swelling SKIN: Absent: rash, itching, pallor NEUROLOGIC: Absent: headache, focal weakness or paresthesias, dizziness, unsteady gait, seizure, mental status changes, bladder or bowel incontinence PSYCHIATRIC: Absent: anxiety, depression, suicidal or homicidal ideation, hallucinations. Is the patient limited Maldivian proficient: No *Physical Exam - Vital Signs Last Vital Signs Temp Pulse Resp BP Pulse Ox 99.9 F H 98 H 18 134/72 99 06/21/18 11:20 06/21/18 11:20 06/21/18 11:20 06/21/18 11:20 06/21/18 11:20 - Physical Exam Comments: 06/21/18 13:20 GENERAL: Well developed, well nourished. Awake and alert. No acute distress. HEENT: Normocephalic, atraumatic. PERRLA, EOMI. No conjunctival pallor. Sclera are non- icteric. Moist mucous membranes. Oropharynx is clear. NECK: Supple. Full ROM. No JVD. Carotid pulses 2+ and symmetric, without bruits. No thyromegaly. No lymphadenopathy. CARDIOVASCULAR: Regular rate and rhythm. No murmurs, rubs, or gallops. Distal pulses are 2+ and symmetric. PULMONARY: No evidence of respiratory distress. Lungs clear to auscultation bilaterally. No wheezing, rales or rhonchi. ABDOMINAL: Soft. Non-tender. Non-distended. No rebound or guarding. No organomegaly. Normoactive bowel sounds. MUSCULOSKELETAL Normal range of motion at all joints. No bony deformities or tenderness. No CVA tenderness. EXTREMITIES: No cyanosis. No clubbing. No edema. No calf tenderness. SKIN: Warm and dry. Normal capillary refill. No rashes. No jaundice. NEUROLOGICAL: Alert, awake, appropriate. Cranial nerves 2-12 intact. No deficits to light touch and temperature in face, upper extremities and lower extremities. No motor deficits in the in face, upper extremities and lower extremities. Normoreflexic in the upper and lower extremities. Normal speech. Toes are down- going bilaterally. Gait is normal without ataxia. PSYCHIATRIC: Cooperative. Good eye contact. Appropriate mood and affect. Medical Decision Making - Medical Decision Making 06/21/18 13:25 The patient is a 67-year-old female with past medical history of hypertension, hyperlipidemia, [id number] diabetes, who presents to the ER today with 1 day of fever, cough, sore throat, body aches. She states she had a T- max of 102.1 at home. She has not taken any Tylenol or Motrin for her symptoms. Denies earache, chest pain, shortness of breath, nausea, vomiting and diarrhea. A/P: Upper respiratory infection Given fever, 1 day body aches sore throat and cough will stop for flu.; It is negative at this time. Patient given a DuoNeb and Motrin with relief of symptoms. Pt afebrile in the ED. Most likely a viral illness. Discharge home I discussed the physical exam findings, ancillary test results and final diagnoses with the patient. I answered all of the patient's questions. The patient was satisfied with the care received and felt comfortable with the discharge plan and treatment plan. The Patient agrees to follow up with the primary care physician/specialist within 24-72 hours. Return precautions were given. *DC/Admit/Observation/Transfer Diagnosis at time of Disposition: Upper respiratory infection Qualifiers: URI type: unspecified viral URI Qualified Code(s): J06.9 - Acute upper respiratory infection, unspecified - Discharge Dispostion Disposition: HOME Condition at time of disposition: Stable Decision to Admit order: No - Prescriptions Prescriptions: Ibuprofen 600 mg PO Q6H #30 tablet - Referrals Referrals: Jose Rafael Arcos MD [Staff Physician] - - Patient Instructions Printed Discharge Instructions: DI for Viral Upper Respiratory Infection -- Adult Additional Instructions: You have an upper respiratory infection, or the common cold. Your flu testing was negative today. Please take Motrin 600 mg every 6 hours as needed for pain not to exceed 3000 mg a day for fever or pain Drink plenty of fluids. Cough drops and warm tea may help your symptoms as well. Please follow up with her primary care doctor this week. Return to the emergency department if you have difficulty breathing, shortness of breath, worsening pain, nausea, vomiting or if you have any changes in your symptoms Tiene mona infeccin respiratoria superior o el resfriado comn. Hunter prueba de gripe fue negativa hoy. Por favor tome Motrin 600 mg cada 6 horas segn sea necesario para que el dolor no exceda de 3000 mg al da para la fiebre o el dolor Monica mucho lquido. Las gotas para la tos y el t caliente tambin pueden ayudar a los sntomas. Por favor, siga con hunter mdico de atencin primaria esta semana. Regrese al Departamento de urgencias si tiene dificultad para respirar, dificultad para respirar, empeoramiento del dolor, nuseas, vmitos o si tiene algn cambio en los sntomas - Post Discharge Activity
== END 2018-06-21 13:18 | disposition home or self-care (01) ==
LOC: JERFT 11:11
PROC: 3E0F7GC Introduction of Other Therapeutic Substance into Respiratory Tract, Via Natural or Artificial Opening (ICD-10-PCS; principal; 2018-06-21)
DX: J06.9 Acute upper respiratory infection, unspecified (principal); I10 Essential (primary) hypertension; E78.5 Hyperlipidemia, unspecified; E11.9 Type 2 diabetes mellitus without complications
CPT/HCPCS: 87804; 94640; 99281-25

== ENCOUNTER 2021-07-07 12:16 | Emergency (ER) | payer OTHER ==
[2021-07-07 12:32] VITALS: BP 133/65; PULSE 80; TEMP 98.1
[2021-07-07] MEDS ORDERED: LIDOCAINE 5% TOPICAL PATCH TP ONE (13:06)
[2021-07-07 15:17] LABS: INFLU A MOLECULAR Negative (Negative); INFLU B MOLECULAR Positive (Negative)
[2021-07-07] MEDS ORDERED: LIDOCAINE PATCH REMOVAL MC SCH (22:00)
[2021-07-08 13:07] LABS: SARS-CoV-2 NAA Detected (Not Detected)
== END 2021-07-07 15:46 | disposition home or self-care (01) ==
LOC: JER 12:16
DX: J06.9 Acute upper respiratory infection, unspecified (principal)
CPT/HCPCS: 71046-TC-FY; 87502; 87651; 99284-25; C9803-CS; U0003; U0005

== ENCOUNTER 2022-08-10 04:32 | Day surgery (SDC) | payer OTHER ==
[2022-08-09 10:49] VITALS: BMI 31.8
[2022-08-10 09:15] VITALS: TEMP 98
[2022-08-10 09:41] VITALS: RESP 16
[2022-08-10 09:46] VITALS: BP 118/65; PULSE 57
== END 2022-08-10 10:05 | disposition home or self-care (01) ==
LOC: JASU-ENDO 04:32
PROVIDERS: ATTEND Student in an Organized Health Care Education/Training Program
PROC: 0DBN8ZX Excision of Sigmoid Colon, Via Natural or Artificial Opening Endoscopic, Diagnostic (ICD-10-PCS; 2022-08-10)
PROC: 0DBP8ZX Excision of Rectum, Via Natural or Artificial Opening Endoscopic, Diagnostic (ICD-10-PCS; 2022-08-10)
PROC: 0DBL8ZX Excision of Transverse Colon, Via Natural or Artificial Opening Endoscopic, Diagnostic (ICD-10-PCS; 2022-08-10)
PROC: 0DBK8ZX Excision of Ascending Colon, Via Natural or Artificial Opening Endoscopic, Diagnostic (ICD-10-PCS; principal; 2022-08-10 08:30)
DX: D12.2 Benign neoplasm of ascending colon (principal); D12.3 Benign neoplasm of transverse colon; D12.5 Benign neoplasm of sigmoid colon; D12.8 Benign neoplasm of rectum; I10 Essential (primary) hypertension; E11.9 Type 2 diabetes mellitus without complications; Z79.84 Long term (current) use of oral hypoglycemic drugs
CPT/HCPCS: 82962; 88305-TC